=== PATIENT | male | born 1980 | race African-American/Black ===

== ENCOUNTER 2022-10-10 14:10 | Emergency (ER) | payer BC ==
[~2022-10-10] VITALS: Ht 170.2 cm; Wt 75.0 kg
[2022-10-10 14:34] VITALS: BP 142/85
[2022-10-10] MEDS ORDERED: TETANUS, DIPHTHERIA, PERTUSSIS VAC/PF 0.5ML (>10YR OLD) IM ONE (16:30)
[2022-10-10] MEDS ORDERED: HYDROCODONE/ACETAMINOPHEN 5/325MG TABLET PO ONE (16:30)
[2022-10-10] MEDS ORDERED: BACITRACIN ZINC OINT UDPKT TOP ONE (16:30)
[2022-10-10] MEDS ORDERED: CEPH500C2 MT (16:57)
[2022-10-10] MEDS ORDERED: IBUP-2029 MT (16:57)
== END 2022-10-10 17:29 | disposition home or self-care (01) ==
LOC: ER 14:10
DX: S60.411A Abrasion of left index finger, initial encounter (principal); W27.0XXA Contact with workbench tool, initial encounter; Y93.89 Activity, other specified; Y92.89 Other specified places as the place of occurrence of the external cause
CPT/HCPCS: 73140; 99283